=== PATIENT | female | born 1955 | race Caucasian/White ===

== ENCOUNTER 2020-07-06 10:19 | Emergency (ER) | payer OTHER, MEDICAID, SELFPAY ==
[2020-07-06] VITALS (7 sets, daily range): BP systolic 91–114; BP diastolic 40–89; PULSE 66–117; RESP 17–19; TEMP 35.6–36.8; O2SAT 95–99; BMI 34.4
[2020-07-06 10:41] LABS: Basophils # 0.1 K/mm3 (0-0.2); Basophils % 0.5 % (0.1-2.0); Eosinophils # 0.3 K/mm3 (0.0-0.4); Eosinophils % 1.9 % (0.1-12.0); Hematocrit 51.9 % (37.0-47.0); Hemoglobin 16.7 g/dL (12.2-16.2); Lymphocytes # 3.4 K/mm3 (0.7-4.5); Lymphocytes % 22.3 % (10-50); Mean Corpuscular HGB Conc 32.2 g/dL (31.8-35.4); Mean Corpuscular Hemoglobin 31.5 pg (27.0-31.2); Mean Platelet Volume 8.8 fl (7.4-10.4); Monocytes # 0.3 K/mm3 (0.1-1.0); Neutrophils % 73.3 % (37.0-80.0); Platelet Count 460 K/mm3 (142-424); Red Cell Distribution Width 13.6 % (11.5-17.5)
[2020-07-06 10:51] LABS: MANUAL DIFFERENTIAL MANUAL DIFFERENTIAL (MANUAL DIFF)
[2020-07-06 10:59] LABS: Chloride 101 mmol/L (98-107); Potassium 4.4 mmoL/L (3.5-5.1); Sodium 136 mmol/L (136-145)
[2020-07-06 11:01] LABS: Alanine Aminotransferase 19 U/L (12-78); Aspartate Amino Transferase 32 U/L (14-36); Blood Urea Nitrogen 18 mg/dl (7-17); Creatinine Clearance Estimated 91 mL/min (50-200); Estimated Glomerular Filt Rate 72 ml/min (>60); GFR (African American) 88 ML/MIN (>60)
[2020-07-06 11:02] LABS: Albumin/Globulin Ratio 1.5 (1.1-1.8); Alkaline Phosphatase 106 U/L (38-126); Anion Gap 17.4 mEq/L (5-15); Bilirubin,Total 1.5 mg/dl (0.2-1.3); Carbon Dioxide 22 mmol/L (22.0-30.0); Globulin 3.3 g/dL (1.3-3.2); Glucose 219 mg/dl (74-100); Lipase 69 U/L (23-300); Total Protein,Serum 8.3 g/dl (6.3-8.2)
--- NOTE | 2020-07-06 11:03 | PC.NURSE ---
Pt keeps yelling out in pain. MD aware. No new orders given.
[2020-07-06 11:05] LABS: Eosinophils % 2 % (0-3); Lymphocytes % 25 % (10-50); Monocytes % 3 % (2-9); Neutrophils % 70 % (42-76); Platelet Estimate Marked Increase; Total Cells Counted 100
--- NOTE | 2020-07-06 11:05 | PC.NURSE ---
Pt has removed pulse ox at this time.
[2020-07-06 11:06] LABS: RBC Morphology Normal
[2020-07-06 11:18] LABS: Troponin I < 0.01 ng/ml (0.00-0.034)
--- NOTE | 2020-07-06 11:24 | PC.NURSE ---
Pt's son at bedside
--- NOTE | 2020-07-06 11:27 | PC.NURSE ---
Pt's son comes out to desk demanding to speak to the doctor. MD aware and is at bedside at this time.
--- NOTE | 2020-07-06 11:38 | [facility].EDNVD ---
ED Disposition Clinical Impression: Gastroenteritis, Drug-induced nausea and vomiting Disposition: Home, Self-Care Condition on Discharge: Good Instructions: DI for Viral Gastroenteritis -- Adult Prescriptions: Dicyclomine HCl [Bentyl 10mg capsule] 10 mg PO TID #10 cap Transmission Status: Pending to [facility]/pharmacy #[id number] Referrals: PCP,No [Primary Care Provider] - Adarsh Lopez MD [Staff Physician] - - Critical Care Critical Care Time: No Attestation: On 07/06/20, the high probability of a clinically significant, sudden or life threatening deterioration of the following system(s) required my full and direct attention, intervention and personal management. The time I documented below is in addition to time spent performing reported procedures but includes the following listed in this critical care notation. Medical Decision Making - Medical Records Medical records reviewed: Yes: I reviewed the patient's medical records. - Anton Inquiry Pt receiving controlled substance: No Vital Signs: 07/06/20 10:20 07/06/20 10:38 07/06/20 11:42 Temperature 96.0 F L Temperature Source Axillary Pulse Rate [Left Radial] 94 H 117 H 66 Respiratory Rate 19 Blood Pressure [Right Arm] 114/76 97/58 L 102/88 L Blood Pressure Mean [Right Arm] 88 71 92 Blood Pressure Source [Right Arm] Automatic Cuff Automatic Cuff Automatic Cuff Blood Pressure Position [Right Arm] Sitting Sitting Sitting 02 Sat by Pulse Oximetry 96 97 97 Oxygen Delivery Method Room Air Room Air 07/06/20 12:00 07/06/20 12:32 07/06/20 13:00 Temperature Temperature Source Pulse Rate [Left Radial] 106 H 103 H 77 Respiratory Rate Blood Pressure [Right Arm] 114/89 99/40 L 91/62 L Blood Pressure Mean [Right Arm] 97 59 71 Blood Pressure Source [Right Arm] Automatic Cuff Automatic Cuff Blood Pressure Position [Right Arm] Sitting Sitting 02 Sat by Pulse Oximetry 95 95 96 Oxygen Delivery Method Room Air Room Air Room Air - Lab Data Lab Results 07/06/20 10:30: WBC 15.0 H, RBC 5.30, Hgb 16.7 H, Hct 51.9 H, MCV 98.0, MCH 31.5 H, MCHC 32.2, RDW 13.6, Plt Count 460 H, MPV 8.8, Neut % (Auto) 73.3, Lymph % (Auto) 22.3, [place] % (Auto) 2.0, Eos % (Auto) 1.9, Baso % (Auto) 0.5, Neut # (Auto) 11.0 H, Lymph # (Auto) 3.4, [place] # (Auto) 0.3, Eos # (Auto) 0.3, Baso # (Auto) 0.1, Total Counted 100, Neutrophils % (Manual) 70, Lymphocytes % (Manual) 25, Monocytes % (Manual) 3, Eosinophils % (Manual) 2, Differential Comment , Platelet Estimate Marked increase, RBC Morphology Normal 07/06/20 10:30: Sodium 136, Potassium 4.4, Chloride 101, Carbon Dioxide 22, Anion Gap 17.4 H, BUN 18 H, Creatinine 0.80, Estimated Creat Clear 91, Estimated GFR 72, Est GFR ( Amer) 88, Glucose 219 H, Calcium 11.0 H, Total Bilirubin 1.5 H, AST 32, ALT 19, Alkaline Phosphatase 106, Troponin I < 0.01, Total Protein 8.3 H, Albumin 5.0, Globulin 3.3 H, Albumin/Globulin Ratio 1.5, Lipase 69 07/06/20 10:30: Acetone Level None detected Result diagrams: 07/06/20 10:30 07/06/20 10:30 Orders (Tests/Meds): ED MEDICATIONS Generic Name Dose Route Start Last Admin Trade Name Freq PRN Reason Stop Dose Admin Sodium Chloride 10 ml 07/06/20 11:30 Sodium Chloride 0.9% 10ml Vial IV 08/05/20 11:29 NEEDED PRN to Dilute Lorazepam inj Discontinued Medications Generic Name Dose Route Start Last Admin Trade Name Freq PRN Reason Stop Dose Admin Sodium Chloride 1,000 mls @ 999 mls/hr 07/06/20 11:45 07/06/20 11:38 Sod Chlor 0.9% 1000ml Bag IV 07/06/20 12:45 999 mls/hr .Q1H1M SERGIO Administration Lorazepam 2 mg 07/06/20 11:30 07/06/20 11:38 Lorazepam 2mg/Ml Vial IV 07/06/20 11:31 2 mg ONCE ONE Administration Promethazine HCl 25 mg 07/06/20 10:27 07/06/20 10:38 Promethazine Hcl 25mg/Ml 1ml Vial IV 07/06/20 10:28 25 mg ONCE ONE Administration Sodium Chloride 25 ml 07/06/20 10:27 07/06/20 10:38 Sodium Chloride 0.9% 25ml Bag IV
--- NOTE | 2020-07-06 11:41 | CT_ITS ---
PROCEDURE: CT ABDOMEN PELVIS WO CON CLINICAL INDICATION: abd pain Abdominal pain with vomiting COMPARISON: No exams were available for comparison TECHNIQUE: Axial images obtained with sagittal and coronal reformats. All CT scans at the facility use one or more dose reduction, viz: automated exposure control, ma/kV adjustment per patient size (including targeted exams where dose is matched to indication, i.e. head), or iterative reconstruction technique. FINDINGS: LOWER THORAX: There is mild thickening of the pericardium anteriorly. ABDOMEN & PELVIS: The liver, gallbladder, spleen, adrenal glands, and kidneys have an unremarkable appearance. There is a small hiatal hernia. The pancreas is not well delineated due to unopacified overlying bowel. There is a moderate amount of formed retained colonic feces within the descending and sigmoid colon. The sigmoid colon measures up 2 6 cm. There is a prominent amount feces and liquid appearing stool within the remaining colon with air-fluid levels within distended descending colon, transverse colon, and ascending colon. The appendix is not identified. Transverse colon measures up to 8 cm. There is fluid-filled small bowel loops also present with mild thickening of the small bowel. There is a small umbilical hernia which contains fat. No free air or pneumatosis apparent. No evidence of portal venous gas. No transition points are identified. No acute bony findings. IMPRESSION: There is abnormal bowel gas pattern of both the large and small bowel with a moderate amount of retained formed colonic feces within the sigmoid colon and rectum with a moderate amount of fluid appearing fecal material within the remaining colon with distension of the entire colon. The large bowel distension could be due to constipation with proximal colonic distension from the constipation. Colonic ileus is also considered. There is also diffuse thickening of the small bowel with fluid-filled loops of small bowel consistent with enteritis Dictated by: Ivan Wong MD 07/06/2020 12:55 Ivan Wong MD in [facility] 07/06/2020 12:55
--- NOTE | 2020-07-06 11:55 | PC.NURSE ---
pts family is now questioning why pt is so o of it explained that pt was given some medicine. Son understands. Pt seems to be resting more comfortably at this time.
--- NOTE | 2020-07-06 12:09 | PC.NURSE ---
Pt to rad.
[2020-07-06 12:25] LABS: Acetone, Serum (Rapid) None Detected (None Detect)
== END 2020-07-06 14:05 | disposition home or self-care (01) ==
PROVIDERS: Emergency Provider Emergency Medicine
DX: K52.9 Noninfective gastroenteritis and colitis, unspecified (principal); T50.905A Adverse effect of unspecified drugs, medicaments and biological substances, initial encounter; F19.11 Other psychoactive substance abuse, in remission
CPT/HCPCS: 74176; 80053; 82009; 83690; 84484; 85007; 85025; 96365; 96375; 99283

== ENCOUNTER 2020-07-06 21:17 | Emergency (ER) | payer MEDICAID, SELFPAY ==
[2020-07-06 21:07] VITALS: BP 93/48; PULSE 113; RESP 16; TEMP 36.4; O2SAT 97; BMI 30.9
--- NOTE | 2020-07-06 21:21 | PC.NURSE ---
warm fluids initiated
--- NOTE | 2020-07-06 21:24 | PC.NURSE ---
pt repositioned herself for comfort.
[2020-07-06 21:30] VITALS: BP 84/48; PULSE 108; RESP 17; O2SAT 94
--- NOTE | 2020-07-06 21:45 | PC.NURSE ---
pt complains of being cold. multiple warm blankets applied to pt.
--- NOTE | 2020-07-06 21:45 | PC.NURSE ---
pt family requested water for pt. pt family instructed that pt is not to have anything to eat or drink at this time until we get some tests back.
[2020-07-06 21:49] LABS: Basophils # 0.2 K/mm3 (0-0.2); Basophils % 0.6 % (0.1-2.0); Eosinophils # 0.1 K/mm3 (0.0-0.4); Eosinophils % 0.3 % (0.1-12.0); Hematocrit 59.3 % (37.0-47.0); Hemoglobin 17.9 g/dL (12.2-16.2); Lymphocytes # 1.2 K/mm3 (0.7-4.5); Lymphocytes % 4.8 % (10-50); Mean Corpuscular HGB Conc 30.3 g/dL (31.8-35.4); Mean Corpuscular Hemoglobin 31.6 pg (27.0-31.2); Mean Corpuscular Volume 104.4 fl (81-99); Mean Platelet Volume 9.6 fl (7.4-10.4); Monocytes # 0.8 K/mm3 (0.1-1.0); Monocytes % 3.4 % (1.7-9.3); Neutrophils # 22.1 K/mm3 (1.8-7.8); Neutrophils % 90.9 % (37.0-80.0); Platelet Count 451 K/mm3 (142-424); Red Blood Count 5.68 M/mm3 (4.20-5.40); Red Cell Distribution Width 13.6 % (11.5-17.5); White Blood Count 24.3 K/mm3 (4.8-10.8)
[2020-07-06 21:50] LABS: MANUAL DIFFERENTIAL MANUAL DIFFERENTIAL (MANUAL DIFF)
--- NOTE | 2020-07-06 21:58 | PC.NURSE ---
offered mouth swabs per nursing due to npo status
[2020-07-06 22:00] VITALS: BP 80/45; PULSE 105; RESP 17; O2SAT 94
--- NOTE | 2020-07-06 22:05 | PC.NURSE ---
pt blood rejected by lab. asked lab to come to bedside
--- NOTE | 2020-07-06 22:12 | PC.NURSE ---
lab at bedside to get blood for pt.
--- NOTE | 2020-07-06 22:22 | HMH.EDAMS ---
ED Disposition Clinical Impression: Severe sepsis with acute organ dysfunction, Septic shock, Acute intestinal ischemic syndrome, CHRISTY (acute kidney injury) Disposition: Xfer Short-Term Hosp Condition on Discharge: Critical Instructions: DI for Altered Mental Status Referrals: PCP,No [Primary Care Provider] - - Critical Care Critical Care Time: Yes Attestation: On 07/06/20, the high probability of a clinically significant, sudden or life threatening deterioration of the following system(s) required my full and direct attention, intervention and personal management. The time I documented below is in addition to time spent performing reported procedures but includes the following listed in this critical care notation. Total Critical Care Time: 90 Vital system(s) involved:: Metabolic Failure, Shock (Septic) My critical care processes included: Assessment & monitoring of V/S, Initial and Re-exams, Data Review/Interpretation, Coordinating Care, Medication Orders and management, Documentation Medical Decision Making - Medical Records Medical records reviewed: Yes: I reviewed the patient's medical records. - Anton Inquiry Pt receiving controlled substance: No Vital Signs: 07/06/20 21:07 07/06/20 21:30 07/06/20 22:00 Temperature 97.6 F Temperature Source Oral Pulse Rate [Left Radial] 113 H 108 H 105 H Respiratory Rate 16 17 17 Blood Pressure [Right Arm] 93/48 L 84/48 L 80/45 L Blood Pressure Mean [Right Arm] 63 60 56 Blood Pressure Source [Right Arm] Automatic Cuff Manual Cuff/ Auscultation Automatic Cuff Blood Pressure Position [Right Arm] Sitting Supine Supine 02 Sat by Pulse Oximetry 97 94 L 94 L Oxygen Delivery Method Room Air Room Air Room Air 07/06/20 22:30 07/06/20 23:00 07/06/20 23:30 Temperature 94.3 F L Temperature Source Rectal Pulse Rate [Left Radial] 100 H 98 H 96 H Respiratory Rate 17 16 16 Blood Pressure [Right Arm] 76/52 L 104/55 L 106/50 L Blood Pressure Mean [Right Arm] 60 71 68 Blood Pressure Source [Right Arm] Automatic Cuff Automatic Cuff Automatic Cuff Blood Pressure Position [Right Arm] Supine Sitting Sitting 02 Sat by Pulse Oximetry 96 98 97 Oxygen Delivery Method Room Air Room Air Room Air 07/07/20 00:00 07/07/20 00:30 07/07/20 01:00 Temperature Temperature Source Pulse Rate [Left Radial] 98 H 100 H 98 H Respiratory Rate 17 17 17 Blood Pressure [Right Arm] 106/50 L 101/52 L 95/50 L Blood Pressure Mean [Right Arm] 68 68 65 Blood Pressure Source [Right Arm] Automatic Cuff Automatic Cuff Automatic Cuff Blood Pressure Position [Right Arm] Supine Supine Supine 02 Sat by Pulse Oximetry 96 98 98 Oxygen Delivery Method Room Air Room Air Room Air 07/07/20 01:30 Temperature Temperature Source Pulse Rate [Left Radial] 99 H Respiratory Rate 16 Blood Pressure [Right Arm] 106/46 L Blood Pressure Mean [Right Arm] 66 Blood Pressure Source [Right Arm] Automatic Cuff Blood Pressure Position [Right Arm] Sitting 02 Sat by Pulse Oximetry 100 Oxygen Delivery Method Room Air - Lab Data Lab results reviewed: Yes: I reviewed the patient's lab results. Lab Results 07/06/20 21:19: WBC 24.3 H* D, RBC 5.68 H, Hgb 17.9 H, Hct 59.3 H, MCV 104.4 H, MCH 31.6 H, MCHC 30.3 L, RDW 13.6, Plt Count 451 H, MPV 9.6, Neut % (Auto) 90.9 H, Lymph % (Auto) 4.8 L, [place] % (Auto) 3.4, Eos % (Auto) 0.3, Baso % (Auto) 0.6, Neut # (Auto) 22.1 H, Lymph # (Auto) 1.2, [place] # (Auto) 0.8, Eos # (Auto) 0.1, Baso # (Auto) 0.2, Total Counted 100, Neutrophils % (Manual) 88 H, Lymphocytes % (Manual) 5 L, Monocytes % (Manual) 7, Platelet Estimate Slight increase, RBC Morphology Normal, Hypochromasia 2+, Macrocytosis 1+ 07/06/20 22:15: Sodium 140, Potassium 4.7, Chloride 105, Carbon Dioxide 6 L* D, Anion Gap 33.7 H, BUN 25 H D, Creatinine 1.70 H D, Estimated Creat Clear 49, Estimated GFR 30 L, Est GFR ( Amer) 37 L D, Glucose 155 H D, Calcium 9.6 D, Total Bilirubin 1.5 H, AST 69 H D, ALT 47 D, Alkaline Phosphata
[2020-07-06 22:23] LABS: Hypochromasia 2+; Lymphocytes % 5 % (10-50); Macrocytosis 1+; Monocytes % 7 % (2-9); Neutrophils % 88 % (42-76); Platelet Estimate Slight Increase; RBC Morphology Normal; Total Cells Counted 100
[2020-07-06 22:28] LABS: Chloride 105 mmol/L (98-107); Sodium 140 mmol/L (136-145)
[2020-07-06 22:29] LABS: Potassium 4.7 mmoL/L (3.5-5.1)
[2020-07-06 22:30] VITALS: BP 76/52; PULSE 100; RESP 17; O2SAT 96
[2020-07-06 22:31] LABS: Alanine Aminotransferase 47 U/L (12-78); Albumin Level 3.9 g/dl (3.5-5.0); Alkaline Phosphatase 110 U/L (38-126); Anion Gap 33.7 mEq/L (5-15); Aspartate Amino Transferase 69 U/L (14-36); Bilirubin,Total 1.5 mg/dl (0.2-1.3); Blood Urea Nitrogen 25 mg/dl (7-17); Creatinine Clearance Estimated 49 mL/min (50-200); Estimated Glomerular Filt Rate 30 ml/min (>60); GFR (African American) 37 ML/MIN (>60); Glucose 155 mg/dl (74-100)
[2020-07-06 22:32] LABS: Albumin/Globulin Ratio 1.6 (1.1-1.8); Globulin 2.5 g/dL (1.3-3.2); Total Protein,Serum 6.4 g/dl (6.3-8.2)
[2020-07-06 22:38] LABS: Acetaminophen < 10 ug/ml (10-30); Carbon Dioxide 6 mmol/L (22.0-30.0); Salicylate < 1.0 mg/dL (2.0-20.0)
[2020-07-06 22:39] LABS: Lactic Acid 13.1 mmol/L (0.7-2.1)
--- NOTE | 2020-07-06 22:45 | ECG_ITS ---
APPROVED REPORT Exam: Resting ECG HR:101 bpm ECG Measurements Heart Rate 101 AXES PA 136 P 75 QRSd 100 QRS 72 QT 360 T 10 QTc 466 Conclusion Sinus tachycardia Otherwise normal ECG Electronically signed by : Nilay Mena, 07/08/2020 19:58:11
[2020-07-06 22:54] LABS: Ethyl Alcohol < 10 mg/dl (0-10)
[2020-07-06 22:57] LABS: Calcium 9.6 mg/dl (8.4-10.2)
[2020-07-06 23:00] VITALS: BP 104/55; PULSE 98; RESP 16; TEMP 34.6; O2SAT 98
[2020-07-06 23:01] LABS: ABG Base Excess -26.5 mmol/L (-2.4-2.3); ABG Oxygen Saturation 96 % (90-100); ABG PCO2 21.6 mmhg (35.0-45.0); ABG PO2 97.8 mmhg (80-100); ABG TCO2 5.7 mmhg (23-27)
[2020-07-06 23:01] LABS: Creatine Kinase 79 U/L (30-135)
[2020-07-06 23:02] LABS: Allen's Test Patient Unable; Oxygen ROOM AIR %; Source Left Radial
[2020-07-06 23:04] LABS: ABG PH 6.99 mmol/L (7.35-7.45)
--- NOTE | 2020-07-06 23:04 | PC.NURSE ---
critical values reported to . called pharmacy for bicarb ya
[2020-07-06 23:22] LABS: Coronavirus 19 IgG Antibody Negative (Negative); Coronavirus 19 IgM Antibody Negative (Negative)
[2020-07-06 23:30] VITALS: BP 106/50; PULSE 96; RESP 16; O2SAT 97
[2020-07-06 23:38] LABS: Microscopic, Urine URINE MICROSCOPIC (MICROSCOPIC)
[2020-07-06 23:40] LABS: Appearance,Urine CLEAR (Clear); Blood, Urine Negative (Negative); Color,Urine YELLOW (Yellow); Glucose,Urine (UA) Negative (Negative); Ketones,Urine TRACE (Negative); Leukocyte Esterase,Urine TRACE (Negative); Nitrate,Urine POSITIVE (Negative); Protein,Urine 2+ (Negative)
--- NOTE | 2020-07-06 23:41 | PC.NURSE ---
pt found to be incontinent of her bowels. pt cleaned up and sheets changed by this nurse and MIA Vazquez. pt felt cold to the touch per staff. rectal temp assessed at 94.3 at this time. bare hugger and multiple warm blankets applied to pt.
[2020-07-06 23:42] LABS: Bilirubin,Urine Negative (Negative)
--- NOTE | 2020-07-06 23:43 | PC.NURSE ---
called RAD for update on pt Xray and head CT status. RAD stated they were completing an Xray on an inpatient at this time
--- NOTE | 2020-07-06 23:44 | PC.NURSE ---
pt aware of critical lab values at this time. no antibiotics initiated due to lack of source at this time.
[2020-07-06 23:52] LABS: Amphetamine/Metha Screen,Urine Negative ng/ml (<1000); Benzodiazepines Screen,Urine Negative ng/ml (<200)
[2020-07-06 23:53] LABS: Barbiturates Screen,Urine Negative ng/ml (<200)
[2020-07-06 23:54] LABS: Cannabinoid Screen,Urine Negative ng/ml (<50); Methadone Screen,Urine Negative ng/ml (<300)
[2020-07-06 23:55] LABS: Cocaine Screen,Urine Negative ng/ml (<300); Opiate Screen,Urine Negative ng/ml (<300)
[2020-07-06 23:56] LABS: Phencyclidine Screen,Urine Negative ng/ml (<25)
[2020-07-07] VITALS: BP 106/50; PULSE 98; RESP 17; O2SAT 96
--- NOTE | 2020-07-07 00:01 | CT_ITS ---
PROCEDURE: CT HEAD/BRAIN WO CON CLINICAL INDICATION: altered mental status Unresponsive Altered mental status, altered level of consciousness, confusion, disorientation COMPARISON: No exams were available for comparison TECHNIQUE: Axial images obtained. All CT scans at the facility use one or more dose reduction, viz: automated exposure control, ma/kV adjustment per patient size (including targeted exams where dose is matched to indication, i.e. head), or iterative reconstruction technique. FINDINGS: No midline shift, mass effect, intracranial hemorrhage, hydrocephalus, or extra-axial fluid collection is evident. The calvarium has an unremarkable appearance. No mastoid effusion. No sinus air-fluid level. IMPRESSION: No acute intracranial finding Dictated by: Ivan Wong MD 07/07/2020 06:59 Ivan Wong MD in [facility] 07/07/2020 06:59
--- NOTE | 2020-07-07 00:01 | XR_ITS ---
PROCEDURE: XR CHEST PORTABLE CLINICAL HISTORY: altered mental status COMPARISON: No exams were available for comparison FINDINGS: The cardiomediastinal silhouette and pulmonary vascularity are within normal limits. There are increased markings in the right lung base medially which may be due to vascular crowding. Upright PA and lateral chest may confirm. The remaining lungs are clear. No acute bony abnormalities. IMPRESSION: Probable vascular crowding in the right lung base otherwise negative Dictated by: Ivan Wong MD 07/07/2020 05:35 Ivan Wong MD in [facility] 07/07/2020 05:35
--- NOTE | 2020-07-07 00:06 | PC.NURSE ---
to ct at this time with radiology via stretcher
--- NOTE | 2020-07-07 00:07 | CT_ITS ---
PROCEDURE: CT CERVICAL SPINE WO CON CLINICAL INDICATION: pt complains of neck pain Neck pain COMPARISON: No exams were available for comparison TECHNIQUE: Axial images obtained with sagittal and coronal reformats. All CT scans at the facility use one or more dose reduction, viz: automated exposure control, ma/kV adjustment per patient size (including targeted exams where dose is matched to indication, i.e. head), or iterative reconstruction technique. Axial spiral CT scanning performed of the cervical spine beginning at the base of the skull and continuing to the upper T-spine. 3-D multiplanar reconstruction with 3-D manipulation of volumetric data set in image rendering was completed by the radiologist and/or technologist with the supervision of the radiologist on independent workstation. FINDINGS: Normal alignment. No fracture or dislocation. Mild cervical spondylosis. At C2-C3 there is some facet hypertrophy on the left. C3-C4: Mild right-sided facet hypertrophy. C4-C5: 2 mm anterolisthesis of C4 with right-sided facet hypertrophic change and mild right foraminal narrowing. C5-C6: Mild degenerative disc disease with facet hypertrophy. C6-C7: Mild degenerative disc disease with facet hypertrophy C7-T1: Unremarkable. Lung apices are clear. There is an air-fluid level within the esophagus. Scattered small nodes are present in the neck IMPRESSION: 1. No acute fracture. 2. Cervical spondylosis. 3. Air-fluid level in the esophagus nonspecific. Dictated by: Ivan Wong MD 07/07/2020 07:02 Ivan Wong MD in [facility] 07/07/2020 07:02
[2020-07-07 00:30] VITALS: BP 101/52; PULSE 100; RESP 17; O2SAT 98
[2020-07-07 00:52] LABS: ABG Base Excess -23.7 mmol/L (-2.4-2.3); ABG Oxygen Saturation 99 % (90-100); ABG PO2 130.9 mmhg (80-100); ABG TCO2 6.6 mmhg (23-27)
[2020-07-07 00:53] LABS: RBC,Urine Occasional #/hpf (0-3)
[2020-07-07 00:53] LABS: Allen's Test Patient Unable; Oxygen room air %
[2020-07-07 00:54] LABS: WBC,Urine Occasional #/hpf (0-3)
[2020-07-07 01:00] VITALS: BP 95/50; PULSE 98; RESP 17; O2SAT 98
[2020-07-07 01:06] LABS: Anion Gap 25.7 mEq/L (5-15); Blood Urea Nitrogen 27 mg/dl (7-17); Chloride 109 mmol/L (98-107); Creatinine Clearance Estimated 52 mL/min (50-200); Estimated Glomerular Filt Rate 33 ml/min (>60); GFR (African American) 39 ML/MIN (>60); Glucose 148 mg/dl (74-100); Potassium 5.7 mmoL/L (3.5-5.1); Sodium 138 mmol/L (136-145)
[2020-07-07 01:10] LABS: Acetone, Serum (Rapid) None Detected (None Detect); Carbon Dioxide 9 mmol/L (22.0-30.0)
[2020-07-07 01:25] LABS: Procalcitonin > 100 ng/mL (0.0-2.0)
--- NOTE | 2020-07-07 01:29 | PC.NURSE ---
weather check for [facility]
[2020-07-07 01:30] VITALS: BP 106/46; PULSE 99; RESP 16; O2SAT 100
[2020-07-07 01:37] LABS: Occult Blood,Stool Positive (Negative)
--- NOTE | 2020-07-07 01:37 | PC.NURSE ---
[facility] declined due to weather. [facility] is checking the next closet.
[2020-07-07 01:43] LABS: C-Reactive Protein 38.5 mg/L (0-4)
--- NOTE | 2020-07-07 01:44 | PC.NURSE ---
Dr. Shields accepted pt at [facility]
[2020-07-07 02:00] VITALS: BP 103/49; PULSE 98; RESP 16; O2SAT 98
[2020-07-07 02:01] LABS: Calcium 8.3 mg/dl (8.4-10.2)
[2020-07-07 02:19] LABS: Reflex Lactic Add Lactic Reflex
--- NOTE | 2020-07-07 02:35 | PC.NURSE ---
pt left via [facility]. no acute distress noted. vss. complaining of mod pain to abd, it was felt best to address upon arrival to [facility]. all belongings sent with patient
[2020-07-07 02:37] LABS: Erythrocyte Sedimentation Rate 2 mm/hr (0-30)
[2020-07-07 02:53] VITALS: BP 100/49; PULSE 101; RESP 19; TEMP 34.8; O2SAT 99
== END 2020-07-07 02:58 | disposition short-term general hospital (02) ==
PROVIDERS: Emergency Provider Emergency Medicine
DX: A41.9 Sepsis, unspecified organism (principal); K55.059 Acute (reversible) ischemia of intestine, part and extent unspecified; N17.9 Acute kidney failure, unspecified; I10 Essential (primary) hypertension; E11.9 Type 2 diabetes mellitus without complications; Z79.84 Long term (current) use of oral hypoglycemic drugs; Z01.84 Encounter for antibody response examination
CPT/HCPCS: 36415; 70450; 71045; 72125; 80048; 80053; 80305; 80329; 81001; 82009; 82272; 82550; 82803; 83605; 84145; 85007; 85025; 85651; 86140; 86328; 87040; 93005; 96365; 96366; 96367; 99285; G0328; J1335